=== PATIENT | female | born 1995 | race Caucasian/White ===

== ENCOUNTER 2018-04-28 23:03 | Inpatient (IN) | payer OTHER ==
[2018-04-28] MEDS ORDERED: VANCOMYCIN 1,000 MG in DEXTROSE 5%-WATER - 250 ML IVPB ONE (23:40)
[2018-04-28] MEDS ORDERED: AMPICILLIN NA/SULBACTAM NA 1.5 GM in SODIUM CHLORIDE 100 ML IVPB ONE (23:40)
--- NOTE | 2018-04-28 23:42 | PDOC ---
Attending Attestation - HPI HPI: 04/29/18 00:21 The patient is a 22 year old female with no significant PMH who presents to the emergency department with a cat bite since earlier today. The patient reports that she was home earlier today and she went outside to get her cat. The patient reports that she was then bitten by a stray cat on her left thumb at 5am. She also endorses some scratched on her left arm. She states that she washed out the cat bite immediately following the incident. She denies any other symptoms. She denies fever, chills, nausea, vomit, diarrhea and constipation or urinary symptoms. She denies chest pain, shortness of breath, headache and dizziness. The patient denies any other complaints. - Physicial Exam PE: 04/29/18 00:22 GENERAL: Awake, alert, and fully oriented, in no acute distress HEAD: No signs of trauma EYES: PERRLA, EOMI, sclera anicteric, conjunctiva clear ENT: Auricles normal inspection, hearing grossly normal, nares patent, oropharynx clear without exudates. Moist mucosa NECK: Normal ROM, supple, no lymphadenopathy, JVD, or masses LUNGS: Breath sounds equal, clear to auscultation bilaterally. No wheezes, and no crackles HEART: Regular rate and rhythm, normal S1 and S2, no murmurs, rubs or gallops ABDOMEN: Soft, nontender, normoactive bowel sounds. No guarding, no rebound. No masses EXTREMITIES: (+)left hand at first and 5th MCP joint has swelling, redness and warmth. Thumb and 1st finger are approximately 1 times larger than other fingers. Exquisite pain with movement. Normal range of motion, no edema. No clubbing or cyanosis. No cords. NEUROLOGICAL: Cranial nerves II through XII grossly intact. Normal speech, normal gait SKIN: Warm, Dry, normal turgor, no rashes or lesions noted. Documentation prepared by Jacqueline Tapia, acting as center medical specialist for Katerina Cid MD. <Jacqueline Tapia - Last Filed: 04/29/18 00:21> - Resident Resident Name: Kathy Mazariegos - ED Attending Attestation I have performed the following: I have examined & evaluated the patient, The case was reviewed & discussed with the resident, I agree w/resident's findings & plan - HPI HPI: 04/29/18 00:05 Pt comes with stray cat bites to her ambidexterous left hand. SHe was bitten at the 1st MCP joint, as well as the MCP koint of the 5th finger - both areas are swollen and cellulitic. She has other shallow bites of the hand and fingers. Unknown if the cat had rabies. 04/29/18 00:08 04/29/18 06:32 RIG and rabavert day zero dose given to the patient. - Physicial Exam PE: 04/29/18 00:10 Agree with resident exam - Medical Decision Making 04/29/18 01:11 WBC elevated; chem pending. C-RP pending 04/29/18 06:32 C-RP elevated. Pt will be admitted to observation for IV abx and reevaluation in 24hrs. <Katerina Cid - Last Filed: 04/29/18 06:33>
[2018-04-28] MEDS ORDERED: KETOROLAC TROMETHAMINE 30 MG/1 ML VIAL IVPUSH ONE (23:45)
[2018-04-28] MEDS ORDERED: RABIES IMMUNE GLOBULIN 300 UNITS/2 ML VIAL IM ONE (23:45)
--- NOTE | 2018-04-28 23:49 | PDOC ---
History of Present Illness - History of Present Illness Initial Comments: Leslie Jose is a 22yo woman with a PMH of PCOS who presents today with a cat bite that occurred this morning. She reports that her cat ran outside, and a stray cat attacked her when she tried to get her pet. She received a bite to the left thumb as well as numerous scratches on her left arm. She immediately washed the wounds, applied hydrogen peroxide, and coated the bite in an antibiotic ointment. However, throughout the day the wound became increasingly red, swollen, and painful. At this time, she has difficulty moving her thumb due to pain and swelling, and she feels throbbing in her hand whenever it is in a dependent position. She has not noticed any rapidly spreading redness or red streaks on her arm, drainage, or continued bleeding from the wounds. Leslie states that she had a tetanus shot last year. <Kathy Mazariegos - Last Filed: 04/28/18 23:44> <Katerina Cid - Last Filed: 04/29/18 00:54> - General Chief Complaint: Bite Stated Complaint: Bite Time Seen by Provider: 04/28/18 23:20 Past History - Past Medical History COPD: No - Immunization History Immunization Up to Date: Yes - Suicide/Smoking/Psychosocial Hx Smoking Status: No Smoking History: Never smoked Have you smoked in the past 12 months: No Number of Cigarettes Smoked Daily: 0 Hx Alcohol Use: No Drug/Substance Use Hx: No Substance Use Type: None <Kathy Mazariegos - Last Filed: 04/28/18 23:44> <Katerina Cid - Last Filed: 04/29/18 00:54> - Past Medical History Allergies/Adverse Reactions: Allergies Allergy/AdvReac Type Severity Reaction Status Date / Time No Known Allergies Allergy Verified 04/28/18 23:08 Home Medications: Ambulatory Orders No Home Medications 0 dose .ROUTE UTDICT 06/19/12 Amox-Tr/K Cl [Augmentin - 875Mg Tablet] 1 tab PO BID #20 tablet 04/29/18 Review of Systems - Review of Systems Comments:: General: No fevers, no chills, no weight or appetite change, no malaise HEENT: No changes in vision, no changes in hearing, no congestion, no sore throat CV: No chest pain, no palpitations, no LE edema Pulm: No SOB, no cough, no wheezing GI: No nausea or vomiting, no change in bowel habits, no melena : No frequency, no urgency, no dysuria Musc: No back pain, no joint swelling, no recent injury Skin: No rash, no lesions, no erythema Endo: No excessive thirst, no heat/cold intolerance Heme: No unusual bruising or bleeding, no swollen glands Neuro: No syncope, no numbness/tingling, no focal weakness Vasc: No claudication Psych: No recent change in mood, no SI or HI <Kathy Mazariegos - Last Filed: 04/28/18 23:44> *Physical Exam - Vital Signs Last Vital Signs Temp Pulse Resp BP Pulse Ox 98.3 F 98 H 20 156/80 99 04/28/18 23:06 04/28/18 23:06 04/28/18 23:06 04/28/18 23:06 04/28/18 23:06 - Physical Exam Comments: General: Comfortable, no acute distress HEENT: PERRL, EOMI, MMM, voice normal, normal neck ROM Pulm: Comfortable on room air Ext: BUE with multiple superficial scratches, more on left than right. LUE with erythema surrounding the scratches. Two puncture wounds consistent with a cat bite on the left thumb. Significant erythema and edema to the left thumb. No active drainage from the wounds. Thumb ROM limited by pain, swelling but appears intact. Sensation intact. Palpable radial pulses. Vasc: Extremities WWP. Neuro: A&Ox3, CN grossly intact, normal speech, motor/sensory grossly intact and symmetric Psych: Mood appropriate to situation <Kathy Mazariegos - Last Filed: 04/28/18 23:44> - Vital Signs Last Vital Signs Temp Pulse Resp BP Pulse Ox 98.3 F 98 H 20 156/80 99 04/28/18 23:06 04/28/18 23:06 04/28/18 23:06 04/28/18 23:06 04/28/18 23:06 <Katerina Cid - Last Filed: 04/29/18 00:54> ED Treatment Course - LABORATORY CBC & Chemistry Diagram: 04/29/18 00:20 04/29/18 00:20 - ADDITIONAL ORDERS Additional order review: 04/29/18 00:20 RBC 4.92 MCV 83.4 MCHC 33.7 RDW 13.6 MPV 9.1 Neutrophils % 61.3 Lymphocytes % 27.8 Monocytes % 8.5 Eosinophils % 1.8 Basophils % 0.6 <Katerina Cid - Last Filed: 04/29/18 00:54> Medical Decision Making - Medical Decision Making 04/28/18 23:57 Leslie Jose is a 22yo woman with no relevant medical history who presents with a bite from a stray cat as well as multiple scratches. - IV abx ordered to be given in the ED as bite occurred 18 hours ago - Tetanus current - Xrays of left hand to r/o retained foreign objects eg teeth - Toradol for pain - Will give rabies vaccine as cat is a stray and attack was unprovoked - Will discharge home on augmentin for 10 days Patient endorsed to Dr Aguero for remainder of care. Discussed with Dr Cid. <Kathy Mazariegos - Last Filed: 04/28/18 23:44> *DC/Admit/Observation/Transfer - Discharge Dispostion Decision to Admit order: No <Kathy Mazariegos - Last Filed: 04/28/18 23:44> <Katerina Cid - Last Filed: 04/29/18 00:54> Diagnosis at time of Disposition: Acute osteomyelitis of metacarpal bone of left hand Cat bite of finger Qualifiers: Encounter type: initial encounter Qualified Code(s): S61.259A - Open bite of unspecified finger without damage to nail, initial encounter - Discharge Dispostion Condition at time of disposition: Guarded - Prescriptions Prescriptions: Amox-Tr/K Cl [Augmentin - 875Mg Tablet] 1 tab PO BID #20 tablet - Referrals - Patient Instructions Printed Discharge Instructions: DI for Animal Bites Additional Instructions: Discharge Instructions: - You were seen in the ED for a cat bite - You recieved IV antibiotics in the ED. You have also been prescribed an antibiotic to take at home. Please continue to take this as prescribed until completed as cat bites can become easily infected - Use medications such as acetaminophen (Tylenol) or ibuprofen (Advil, Motrin) for pain - Consider ice packs for swelling or warm compresses for any drainage - Make an appointment to follow up with hand surgery (Dr Zimmerman) within the next week - You will need several more shots to complete the rabies vaccine series. Please follow up with your primary physician or come back to the ED for the remainder of your vaccines. - Seek immediate medical care if you have significant worsening of the swelling that prevents movement of your thumb, the thumb becomes extremely painful, numb to touch, and/or cold
[2018-04-29] MEDS ORDERED: VANCOMYCIN 1 GRAM (PRE-DOCKED) 1,000 MG/250 ML BAG IVPB ONE ×2 (00:09→03:19)
[2018-04-29] MEDS ORDERED: KETOROLAC TROMETHAMINE 30 MG/1 ML VIAL ONE (00:09)
[2018-04-29] MEDS ORDERED: RABIES VACCINE (PCEC)/PF 2.5 UNIT/VIAL IM ONE (00:29)
--- NOTE | 2018-04-29 00:38 | PDOC ---
*Physical Exam - Vital Signs Last Vital Signs Temp Pulse Resp BP Pulse Ox 98.3 F 98 H 20 156/80 99 04/28/18 23:06 04/28/18 23:06 04/28/18 23:06 04/28/18 23:06 04/28/18 23:06 - Physical Exam Comments: Initial Vital Signs Temp Pulse Resp BP Pulse Ox 98.3 F 98 H 20 156/80 99 04/28/18 23:06 04/28/18 23:06 04/28/18 23:06 04/28/18 23:06 04/28/18 23:06 04/29/18 00:38 Patient's care was endorsed to me by Dr. Mazariegos at the end of her shift. Patient will likely need admission as thumb has decreased ROM, needs hand consultation and continued IV abx. Ordered is rabies vaccine. Patient got rabies immune globulin and abx. Dr. Cid has ordered laboratory w/u and then we will page hospitalist for admission. <Yumi Cantu - Last Filed: 04/29/18 01:36> - Vital Signs Last Vital Signs Temp Pulse Resp BP Pulse Ox 98.3 F 98 H 20 156/80 99 04/28/18 23:06 04/28/18 23:06 04/28/18 23:06 04/28/18 23:06 04/28/18 23:06 <Katerina iCd - Last Filed: 04/29/18 03:25> ED Treatment Course - LABORATORY CBC & Chemistry Diagram: 04/29/18 00:20 04/29/18 00:20 <Yumi Cantu - Last Filed: 04/29/18 01:36> - LABORATORY CBC & Chemistry Diagram: 04/29/18 00:20 04/29/18 00:20 - ADDITIONAL ORDERS Additional order review: Laboratory Results 04/29/18 04/29/18 04/29/18 01:38 01:07 00:20 Sodium 140 Potassium 4.0 Chloride 104 Carbon Dioxide 27 Anion Gap 9 BUN 10 Creatinine 0.7 Creat Clearance w eGFR > 60 Random Glucose 99 Calcium 9.1 Total Bilirubin 1.0 AST 39 H ALT 67 Alkaline Phosphatase 125 H C-Reactive Protein 1.7 H Total Protein 8.0 Albumin 3.9 Serum , Qual Negative 04/29/18 00:20 RBC 4.92 MCV 83.4 MCHC 33.7 RDW 13.6 MPV 9.1 Neutrophils % 61.3 Lymphocytes % 27.8 Monocytes % 8.5 Eosinophils % 1.8 Basophils % 0.6 - Medications Given in the ED: ED Medications Discontinued Medications Generic Name Dose Route Start Last Admin Trade Name Bryan PRN Reason Stop Dose Admin Ampicillin Sodium/Sulbactam 100 mls @ 200 mls/hr 04/28/18 23:40 04/29/18 00: 45 Sodium 1.5 gm/ Sodium Chloride IVPB 04/29/18 00:09 200 mls/hr ONCE ONE Administration Vancomycin HCl 1,000 mg/ 250 mls @ 250 mls/hr 04/28/18 23:40 04/29/18 00:45 Dextrose IVPB 04/29/18 00:39 250 mls/hr ONCE ONE Administration Protocol Ketorolac Tromethamine 30 mg 04/28/18 23:45 04/29/18 00:15 Toradol Injection - IVPUSH 04/28/18 23:46 30 mg ONCE ONE Administration Rabies Immune Globulin 17.7 ml 04/28/18 23:45 04/29/18 01:00 Hyperrab S/D - 0.1333 ml/kg (17.7 ml) 04/28/18 23:46 17.7 ml IM Administration ONCE ONE Protocol Rabies Vaccine 2.5 unit 04/29/18 00:29 04/29/18 01:00 Rabavert Rabies Vaccine IM 04/29/18 00:30 2.5 unit .ONCE ONE Administration <Katerina Cid - Last Filed: 04/29/18 03:25> Medical Decision Making - Medical Decision Making Laboratory Tests 04/29/18 04/29/18 04/29/18 00:20 00:20 01:07 WBC 14.5 H RBC 4.92 Hgb 13.8 Hct 41.0 MCV 83.4 MCH 28.1 MCHC 33.7 RDW 13.6 Plt Count 298 MPV 9.1 Absolute Neuts (auto) 8.9 H Neutrophils % 61.3 Lymphocytes % 27.8 Monocytes % 8.5 Eosinophils % 1.8 Basophils % 0.6 Nucleated RBC % 0 Sodium 140 Potassium 4.0 Chloride 104 Carbon Dioxide 27 Anion Gap 9 BUN 10 Creatinine 0.7 Creat Clearance w eGFR > 60 Random Glucose 99 Calcium 9.1 Total Bilirubin 1.0 AST 39 H ALT 67 Alkaline Phosphatase 125 H C-Reactive Protein 1.7 H Total Protein 8.0 Albumin 3.9 04/29/18 01:36 Ordered is another 1,000 mg Vancomycin IVPB to bring dosing up to septic arthritis dosing (15-20 mg/kg). Still awaiting hand XR as radiology dept was called elsewhere in the hospital. <Yumi Cantu - Last Filed: 04/29/18 01:36> *DC/Admit/Observation/Transfer - Discharge Dispostion Decision to Admit order: Yes <Yumi Cantu - Last Filed: 04/29/18 01:36> <Katerina Cid - Last Filed: 04/29/18 03:25> Diagnosis at time of Disposition: Cellulitis of thumb, left, Metacarpophalangeal joint pain Cat bite of finger Qualifiers: Encounter type: initial encounter Qualified Code(s): S61.259A - Open bite of unspecified finger without damage to nail, initial encounter - Discharge Dispostion Condition at time of disposition: Guarded - Prescriptions Prescriptions: Amox-Tr/K Cl [Augmentin - 875Mg Tablet] 1 tab PO BID #20 tablet - Referrals - Patient Instructions Printed Discharge Instructions: DI for Animal Bites Additional Instructions: Discharge Instructions: - You were seen in the ED for a cat bite - You recieved IV antibiotics in the ED. You have also been prescribed an antibiotic to take at home. Please continue to take this as prescribed until completed as cat bites can become easily infected - Use medications such as acetaminophen (Tylenol) or ibuprofen (Advil, Motrin) for pain - Consider ice packs for swelling or warm compresses for any drainage - Make an appointment to follow up with hand surgery (Dr Zimmerman) within the next week - You will need several more shots to complete the rabies vaccine series. Please follow up with your primary physician or come back to the ED for the remainder of your vaccines. - Seek immediate medical care if you have significant worsening of the swelling that prevents movement of your thumb, the thumb becomes extremely painful, numb to touch, and/or cold - Post Discharge Activity
[2018-04-29 00:42] LABS: BASO % 0.6 % (0-2.0); EOS % 1.8 % (0-4.5); HEMOGLOBIN 13.8 GM/dL (10.7-15.3); LYMPH % 27.8 % (8-40); MCH 28.1 pg (25.7-33.7); MCHC 33.7 g/dl (32.0-36.0); MEAN CELL VOLUME 83.4 fl (80-96); MEAN PLT VOLUME 9.1 fl (7.5-11.1); MONO % 8.5 % (3.8-10.2); NEUT % 61.3 % (42.8-82.8); PLATELET COUNT 298 K/MM3 (134-434); RBC 4.92 M/mm3 (3.60-5.2); RDW 13.6 % (11.6-15.6); WHITE BLOOD COUNT 14.5 K/mm3 (4.0-10.0)
[2018-04-29] MEDS ORDERED: LIDOCAINE 2.5%/PRILOCAINE 2.5% (5 Gram/TUBE) TP ONE (00:49)
[2018-04-29 01:06] LABS: ALBUMIN 3.9 g/dl (3.4-5.0); ALK PHOS 125 U/L (45-117); ANION GAP 9 MMOL/L (8-16); BLOOD UREA NITROGEN 10 mg/dL (7-18); CALCIUM 9.1 mg/dL (8.5-10.1); CHLORIDE 104 mmol/L (98-107); CO2 27 mmol/L (21-32); CREATININE 0.7 mg/dL (0.55-1.02); GLUCOSE,RANDOM 99 mg/dL (74-106); SGPT/ALT 67 U/L (12-78); SODIUM 140 mmol/L (136-145)
[2018-04-29 01:07] LABS: SGOT/AST 39 U/L (15-37)
[2018-04-29] MEDS ORDERED: VANCOMYCIN 1,000 MG in DEXTROSE 5%-WATER - 250 ML IVPB ONE (01:35)
--- NOTE | 2018-04-29 03:40 | PDOC ---
*Physical Exam - Vital Signs Last Vital Signs Temp Pulse Resp BP Pulse Ox 98.3 F 98 H 20 156/80 99 04/28/18 23:06 04/28/18 23:06 04/28/18 23:06 04/28/18 23:06 04/28/18 23:06 ED Treatment Course - LABORATORY CBC & Chemistry Diagram: 04/29/18 00:20 04/29/18 00:20 - ADDITIONAL ORDERS Additional order review: Laboratory Results 04/29/18 04/29/18 04/29/18 01:38 01:07 00:20 Sodium 140 Potassium 4.0 Chloride 104 Carbon Dioxide 27 Anion Gap 9 BUN 10 Creatinine 0.7 Creat Clearance w eGFR > 60 Random Glucose 99 Calcium 9.1 Total Bilirubin 1.0 AST 39 H ALT 67 Alkaline Phosphatase 125 H C-Reactive Protein 1.7 H Total Protein 8.0 Albumin 3.9 Serum , Qual Negative 04/29/18 00:20 RBC 4.92 MCV 83.4 MCHC 33.7 RDW 13.6 MPV 9.1 Neutrophils % 61.3 Lymphocytes % 27.8 Monocytes % 8.5 Eosinophils % 1.8 Basophils % 0.6 - Medications Given in the ED: ED Medications Discontinued Medications Generic Name Dose Route Start Last Admin Trade Name Freq PRN Reason Stop Dose Admin Ampicillin Sodium/Sulbactam 100 mls @ 200 mls/hr 04/28/18 23:40 04/29/18 00: 45 Sodium 1.5 gm/ Sodium Chloride IVPB 04/29/18 00:09 200 mls/hr ONCE ONE Administration Vancomycin HCl 1,000 mg/ 250 mls @ 250 mls/hr 04/28/18 23:40 04/29/18 00:45 Dextrose IVPB 04/29/18 00:39 250 mls/hr ONCE ONE Administration Protocol Ketorolac Tromethamine 30 mg 04/28/18 23:45 04/29/18 00:15 Toradol Injection - IVPUSH 04/28/18 23:46 30 mg ONCE ONE Administration Rabies Immune Globulin 17.7 ml 04/28/18 23:45 04/29/18 01:00 Hyperrab S/D - 0.1333 ml/kg (17.7 ml) 04/28/18 23:46 17.7 ml IM Administration ONCE ONE Protocol Rabies Vaccine 2.5 unit 04/29/18 00:29 04/29/18 01:00 Rabavert Rabies Vaccine IM 04/29/18 00:30 2.5 unit .ONCE ONE Administration Medical Decision Making - Medical Decision Making 04/29/18 03:26 got sigout from day resident. patient had CAt bite and is developing a cellulites of her hand. Got ampicillin/salbactum and vanco. Xray reviewed: report pending. Less likely osteo. Patient has swelling and erythema on left thumb and little finger. Paged admitting [facility] hospitalist for admission. *DC/Admit/Observation/Transfer Diagnosis at time of Disposition: Cellulitis of thumb, left Cat bite of finger Qualifiers: Encounter type: initial encounter Qualified Code(s): S61.259A - Open bite of unspecified finger without damage to nail, initial encounter; W55.01XA - Bitten by cat, initial encounter Metacarpophalangeal joint pain Qualifiers: Laterality: left Qualified Code(s): M25.542 - Pain in joints of left hand - Discharge Dispostion Condition at time of disposition: Guarded Decision to Admit order: Yes - Prescriptions Prescriptions: Amox-Tr/K Cl [Augmentin - 875Mg Tablet] 1 tab PO BID #20 tablet - Referrals - Patient Instructions Printed Discharge Instructions: DI for Animal Bites Additional Instructions: Discharge Instructions: - You were seen in the ED for a cat bite - You recieved IV antibiotics in the ED. You have also been prescribed an antibiotic to take at home. Please continue to take this as prescribed until completed as cat bites can become easily infected - Use medications such as acetaminophen (Tylenol) or ibuprofen (Advil, Motrin) for pain - Consider ice packs for swelling or warm compresses for any drainage - Make an appointment to follow up with hand surgery (Dr Zimmerman) within the next week - You will need several more shots to complete the rabies vaccine series. Please follow up with your primary physician or come back to the ED for the remainder of your vaccines. - Seek immediate medical care if you have significant worsening of the swelling that prevents movement of your thumb, the thumb becomes extremely painful, numb to touch, and/or cold - Post Discharge Activity
--- NOTE | 2018-04-29 04:10 | PN ---
Teaching Attending Note Name of Resident: Alex Lovell ATTENDING PHYSICIAN STATEMENT I saw and evaluated the patient. I reviewed the resident's note and discussed the case with the resident. I agree with the resident's findings and plan as documented. SUBJECTIVE: Patient is a 22 year old woman with a PMH of PCOS who presents today with a cat bite that occurred this morning. She reports that her cat ran outside, and a stray cat attacked her when she tried to get her pet. She received a bite to the left thumb as well as numerous scratches on her left arm. She immediately washed the wounds, applied hydrogen peroxide, and coated the bite in an antibiotic ointment. However, throughout the day the wound became increasingly red, swollen, and painful. At this time, she has difficulty moving her thumb due to pain and swelling, and she feels throbbing in her hand whenever it is in a dependent position. She had a tetanus shot last year and got rabies immune globulin and vaccine in the ER as well as vancomycin and zosyn. OBJECTIVE: Alert Vital Signs Period Temp Pulse Resp BP Sys/Feng Pulse Ox Last 24 Hr 98.3 F 98 20 156/80 99 HEENT: No Jaundice, eye redness or discharge, PERRLA, EOMI. Normocephalic, atraumatic. External ears are normal and hearing is grossly intact. No nasal discharge. Neck: Supple, nontender. No palpable adenopathy or thyromegaly. No JVD Chest: Good effort. Clear to auscultation and percussion. Heart: Regular. No S3, rub or murmur Abdomen: Not distended, soft, nontender and no HSM. No rebound or guarding. Normoactive bowel sounds. Ext: Superficial scratches on arms with erythema surrounding the scratches on LUE. Two puncture wounds on the left thumb. Significant erythema and edema to the left thumb. No active drainage from the wounds. Thumb ROM limited. Peripheral pulses intact. No leg edema. Skin: Warm and dry. No petechiae, rash or ecchymosis. Neuro: Alert. Oriented x3. CN 2-12 grossly intact. Sensation grossly intact in all four extremities and DTR are symmetric. Home Medications Medication Instructions Recorded No Home Medications 0 dose .ROUTE UTDICT 06/19/12 Amox-Tr/K Cl [Augmentin - 875Mg 1 tab PO BID #20 tablet 04/29/18 Tablet] Abnormal Lab Results 04/29/18 04/29/18 04/29/18 00:20 00:20 01:07 WBC 14.5 H Absolute Neuts (auto) 8.9 H AST 39 H Alkaline Phosphatase 125 H C-Reactive Protein 1.7 H ASSESSMENT AND PLAN: 1. Cellulitis associated with cat bite - Continue vanco and unasyn. Provide local wound care. Consult ID and vascular surgery. May have undiagnosed hypertension. Recheck BP with right-sized cuff. Counseled about low salt, lifestyle changes and weight loss. May need to be started on antihypertensive drugs before discharge. 2. Obesity - Will provide patient all the necessary assistance , counseling and positive reinforcement to facilitate weight loss. Consult warehouse pricing and inventory clerk. 3. DVT prophylaxis - Lovenox 40 mg SQ q 12 hours. 4. Advance directives - Full code
[2018-04-29] MEDS ORDERED: HEPARIN NA (PORCINE) 5,000 UNITS/ML 1ML VIAL SQ SCH (06:00)
--- NOTE | 2018-04-29 06:23 | HP ---
CHIEF COMPLAINT: hand pain PCP: HISTORY OF PRESENT ILLNESS: Pt is a 22 y/o F with PMH pcos who presented with pain of the L hand who was bitten by a stray cat. Cat bit pt and ran away. Bite chase are still painful but improving. ER course was notable for: (1) abx (2) (3) Recent Travel: denies PAST MEDICAL HISTORY: denies PAST SURGICAL HISTORY: denies Social History: Smoking: denies Alcohol: denies Drugs: denies Family History: Allergies No Known Allergies Allergy (Verified 04/28/18 23:08) HOME MEDICATIONS: Home Medications Medication Instructions Recorded No Home Medications 0 dose .ROUTE UTDICT 06/19/12 Amox-Tr/K Cl [Augmentin - 875Mg 1 tab PO BID #20 tablet 04/29/18 Tablet] REVIEW OF SYSTEMS CONSTITUTIONAL: Absent: fever, chills, diaphoresis, generalized weakness, malaise, loss of appetite, weight change HEENT: Absent: rhinorrhea, nasal congestion, throat pain, throat swelling, difficulty swallowing, mouth swelling, ear pain, eye pain, visual changes CARDIOVASCULAR: Absent: chest pain, syncope, palpitations, irregular heart rate, lightheadedness , peripheral edema RESPIRATORY: Absent: cough, shortness of breath, dyspnea with exertion, orthopnea, wheezing, stridor, hemoptysis GASTROINTESTINAL: Absent: abdominal pain, abdominal distension, nausea, vomiting, diarrhea, constipation, melena, hematochezia GENITOURINARY: Absent: dysuria, frequency, urgency, hesitancy, hematuria, flank pain, genital pain MUSCULOSKELETAL: myalgia Absent: , arthralgia, joint swelling, back pain, neck pain SKIN: Absent: rash, itching, pallor HEMATOLOGIC/IMMUNOLOGIC: Absent: easy bleeding, easy bruising, lymphadenopathy, frequent infections ENDOCRINE: Absent: unexplained weight gain, unexplained weight loss, heat intolerance, cold intolerance NEUROLOGIC: Absent: headache, focal weakness or paresthesias, dizziness, unsteady gait, seizure, mental status changes, bladder or bowel incontinence PSYCHIATRIC: Absent: anxiety, depression, suicidal or homicidal ideation, hallucinations. PHYSICAL EXAMINATION Vital Signs - 24 hr 04/28/18 23:06 Temperature 98.3 F Pulse Rate 98 H Respiratory 20 Rate Blood Pressure 156/80 O2 Sat by Pulse 99 Oximetry (%) Gen: NAD HEENT: NCAT, moist membranes Neck: supple, no jvd Cardio: rrr, normal s1s2, no mrg Pulm cta abd: soft nontender nonistended Laboratory Results - last 24 hr 04/29/18 04/29/18 04/29/18 00:20 00:20 01:07 WBC 14.5 H RBC 4.92 Hgb 13.8 Hct 41.0 MCV 83.4 MCH 28.1 MCHC 33.7 RDW 13.6 Plt Count 298 MPV 9.1 Absolute Neuts (auto) 8.9 H Neutrophils % 61.3 Lymphocytes % 27.8 Monocytes % 8.5 Eosinophils % 1.8 Basophils % 0.6 Nucleated RBC % 0 Sodium 140 Potassium 4.0 Chloride 104 Carbon Dioxide 27 Anion Gap 9 BUN 10 Creatinine 0.7 Creat Clearance w eGFR > 60 Random Glucose 99 Calcium 9.1 Total Bilirubin 1.0 AST 39 H ALT 67 Alkaline Phosphatase 125 H C-Reactive Protein 1.7 H Total Protein 8.0 Albumin 3.9 Serum , Qual 04/29/18 01:38 WBC RBC Hgb Hct MCV MCH MCHC RDW Plt Count MPV Absolute Neuts (auto) Neutrophils % Lymphocytes % Monocytes % Eosinophils % Basophils % Nucleated RBC % Sodium Potassium Chloride Carbon Dioxide Anion Gap BUN Creatinine Creat Clearance w eGFR Random Glucose Calcium Total Bilirubin AST ALT Alkaline Phosphatase C-Reactive Protein Total Protein Albumin Serum , Qual Negative ASSESSMENT/PLAN: Pt is a 22 y/o F with PMH pcos who presented with pain of the L hand who was bitten by a stray cat. #Cat bite -on ABx in ED -Got Vanc, unasyn -NS -Improving #FEN -not on fluids -lytes wnl -reg diet #PPx -Hep #Dispo -tele obs Alex Lovell MD PGY-2 IM Visit type - Emergency Visit Emergency Visit: Yes ED Registration Date: 04/29/18 Care time: The patient presented to the Emergency Department on the above date and was hospitalized for further evaluation of their emergent condition. - New Patient This patient is new to me today: Yes Date on this admission: 05/01/18 - Critical Care Critical Care patient: No Hospitalist Screening - Colonoscopy Questionnaire Colonoscopy Questionnaire: Colonoscopy Questionnaire - Patient: 50 - 75 years old and never had a screening colonoscopy: Unknown History of colon or rectal polyps, or CA: Unknown History of IBD, Crohn's disease or UC: Unknown History of abdominal radiation therapy as a child: Unknown - Relative: 1 with colon or rectal CA, or polyps at age 60 or younger: Unknown Colon or rectal CA diagnosed at age 45 or younger: Unknown Multiple relatives with colon or rectal CA: Unknown - Outcome: Screening Result: Negative Screen
[2018-04-29] MEDS ORDERED: HEPARIN NA (PORCINE) 5,000 UNITS/ML 1ML VIAL ONE ×2 (06:57→08:49)
[2018-04-29] MEDS ORDERED: SODIUM CHLORIDE 1,000 ML IV SCH (08:30)
[2018-04-29] MEDS ORDERED: CLINDAMYCIN 600MG PREMIX IVPB 600 MG/50 ML BAG IVPB ONE (08:42)
[2018-04-29] MEDS ORDERED: CLINDAMYCIN 600MG PREMIX IVPB 600 MG/50 ML BAG IVPB SCH ×2 (09:00→10:00)
--- NOTE | 2018-04-29 09:56 | PN ---
Physical Exam: SUBJECTIVE: Patient seen and examined, left hand swelling, redness markedly improved, able to move hand better, no fevers/chills or new concerns. OBJECTIVE: Vital Signs Period Temp Pulse Resp BP Sys/Feng Pulse Ox Last 24 Hr 98.3 F-98.4 F 78-98 16-20 127-156/80-80 97-100 GENERAL:morbidly obese female, in bed in no acute distress Chest: CtAb, no rales or wheezing Abdomen:soft, obese, NT EXtremities: left had erythema left thump, swelling involving entire left hand more around thumb, improved per patient, able to almost close fist, limited by swelling more than by pain, positive pulses. HEENT: EOMI, PERRL Laboratory Results - last 24 hr 04/29/18 04/29/18 04/29/18 00:20 00:20 01:07 WBC 14.5 H RBC 4.92 Hgb 13.8 Hct 41.0 MCV 83.4 MCH 28.1 MCHC 33.7 RDW 13.6 Plt Count 298 MPV 9.1 Absolute Neuts (auto) 8.9 H Neutrophils % 61.3 Lymphocytes % 27.8 Monocytes % 8.5 Eosinophils % 1.8 Basophils % 0.6 Nucleated RBC % 0 Sodium 140 Potassium 4.0 Chloride 104 Carbon Dioxide 27 Anion Gap 9 BUN 10 Creatinine 0.7 Creat Clearance w eGFR > 60 Random Glucose 99 Hemoglobin A1c % Calcium 9.1 Total Bilirubin 1.0 AST 39 H ALT 67 Alkaline Phosphatase 125 H C-Reactive Protein 1.7 H Total Protein 8.0 Albumin 3.9 Serum , Qual 04/29/18 04/29/18 01:38 08:38 WBC RBC Hgb Hct MCV MCH MCHC RDW Plt Count MPV Absolute Neuts (auto) Neutrophils % Lymphocytes % Monocytes % Eosinophils % Basophils % Nucleated RBC % Sodium Potassium Chloride Carbon Dioxide Anion Gap BUN Creatinine Creat Clearance w eGFR Random Glucose Hemoglobin A1c % 5.5 Calcium Total Bilirubin AST ALT Alkaline Phosphatase C-Reactive Protein Total Protein Albumin Serum , Qual Negative Active Medications Generic Name Dose Route Start Last Admin Trade Name Freq PRN Reason Stop Dose Admin Chlorhexidine Gluconate 1 applic 04/29/18 22:00 Hibiclens For Decolonization - TP HS NU Heparin Sodium (Porcine) 5,000 unit 04/29/18 06:00 04/29/18 08:55 Heparin - SQ 5,000 unit TID NU Administration Ampicillin Sodium/Sulbactam 100 mls @ 200 mls/hr 04/29/18 09:00 Sodium 3 gm/ Sodium Chloride IVPB Q6H-IV NU Clindamycin Phosphate 600 mg in 50 mls @ 100 mls/hr 04/29/18 09:00 04/29/18 08:55 Cleocin 600 Mg Premix Ivpb - IVPB 100 mls/hr Q6H-IV NU Administration Protocol Sodium Chloride 1,000 mls @ 75 mls/hr 04/29/18 08:30 04/29/18 08:55 Normal Saline - IV 75 mls/hr ASDIR NU Administration Mupirocin 1 applic 04/29/18 10:00 Bactroban Ointment (For Decolonization) - NS 05/04/18 09:59 BID NU ASSESSMENT/PLAN: 22 yof with morbid obesity, PCOS, admitted with left hand cat bite cellulitis -Left hand cat bite cellulitis, unlikely abscess given rapid improvement and current exam -leucocytosis, suspect from above -PCOS -Morbid obesity Plan: Markedly improved, unlikely underlying abscess. s/p zosyn/vancomycin in ED. Start unasyn.clindamycin. Hand surgery consult with Dr. Zimmerman, case discussed. ID consult Dr. Benjamin, Gentle hydration, tylenol prn A1c 5.5 DVTPPX lovenox Dispo in 24-48 hours on PO abx if continues to improve. Plan discussed with patient in detail, all questions answered. discussed with RN. Visit type - Emergency Visit Emergency Visit: Yes ED Registration Date: 04/29/18 Care time: The patient presented to the Emergency Department on the above date and was hospitalized for further evaluation of their emergent condition. - New Patient This patient is new to me today: Yes Date on this admission: 04/29/18 - Critical Care Critical Care patient: No - Discharge Referral Referred to [facility] Med P.C.: No
[2018-04-29] MEDS ORDERED: MUPIROCIN 2% TOPICAL OINTMENT FOR DECOLONIZATION NS SCH (10:00)
[2018-04-29 10:03] LABS: BASO % 0.4 % (0-2.0); EOS % 2.4 % (0-4.5); HEMATOCRIT 39.9 % (32.4-45.2); HEMOGLOBIN 13.4 GM/dL (10.7-15.3); LYMPH % 25.2 % (8-40); MCH 28.1 pg (25.7-33.7); MCHC 33.6 g/dl (32.0-36.0); MEAN CELL VOLUME 83.7 fl (80-96); MEAN PLT VOLUME 9.4 fl (7.5-11.1); MONO % 9.3 % (3.8-10.2); NEUT % 62.7 % (42.8-82.8); PLATELET COUNT 263 K/MM3 (134-434); RBC 4.76 M/mm3 (3.60-5.2); RDW 13.3 % (11.6-15.6); WHITE BLOOD COUNT 10.7 K/mm3 (4.0-10.0)
[2018-04-29 10:21] LABS: ALK PHOS 125 U/L (45-117); ANION GAP 13 MMOL/L (8-16); BILIRUBIN,TOTAL 1.1 mg/dL (0.2-1.0); BLOOD UREA NITROGEN 11 mg/dL (7-18); CALCIUM 9.2 mg/dL (8.5-10.1); CHLORIDE 105 mmol/L (98-107); CO2 22 mmol/L (21-32); CREATININE 0.7 mg/dL (0.55-1.02); GLUCOSE,RANDOM 104 mg/dL (74-106); SGPT/ALT 67 U/L (12-78); SODIUM 140 mmol/L (136-145)
[2018-04-29 10:22] LABS: POTASSIUM 4.1 mmol/L (3.5-5.1)
[2018-04-29 10:23] LABS: SGOT/AST 48 U/L (15-37)
[2018-04-29] MEDS: AMPICILLIN NA/SULBACTAM NA 3 GM in SODIUM CHLORIDE 100 ML IVPB SCH ×3 (12:03→20:18)
[2018-04-29] MEDS: ENOXAPARIN NA (PORCINE) 40 MG/0.4 ML DISP.SYRIN SQ SCH (12:16)
[2018-04-29 12:25] VITALS: BMI 46.3
--- NOTE | 2018-04-29 13:44 | PN ---
Progress Note (short form) - Note Progress Note: ID Consult dictated S/P cat bite L hand Cellulitis R/O tenosynovitis Obtain BC Empiric unasyn/ vancomycin Hand surgery evaluation RIG/ Rabies vaccine administered
--- NOTE | 2018-04-29 14:17 | CONS ---
DATE OF CONSULTATION: 04/29/2018 The patient is a 22-year-old healthy female who is evaluated for cellulitis of the left hand, status post cat bite. The patient reports that she had sustained a cat bite wound to her left hand on April 28, 2018. She reports that her cat and another cat were having an altercation at about 5:00 a.m. The stray cat bit her left hand resulting in wounds to the left 1st and 5th MCP joints. She presented to the emergency room where she was evaluated. She was given rabies immunoglobulin and rabies vaccine. An x-ray was performed and was negative. She denies any purulent wound drainage. No associated fevers or chills. PAST MEDICAL HISTORY: Negative. The patient is nondiabetic. ALLERGIES: No known allergies. LABORATORY DATA: White count on admission 14, presently 10.7, and creatinine 0.7. Cultures are pending. PHYSICAL EXAMINATION: General: She is awake and alert. She is not acutely toxic appearing. Vital Signs: Temperature 98.2, blood pressure 133/74, pulse 78 and regular, and respirations 20 per minute. HEENT: Anicteric. Heart: Heart sounds S1, S2. Lungs: Clear. Abdomen: Soft, obese. Extremities: Negative for edema. Examination of the left hand: There is erythema and swelling with puncture wounds present of the left 5th MCP joint. In addition, there is erythema and swelling of the left 1st MCP joint with puncture wounds present. There is no expressible pus. There is decreased range of motion. The patient is able to clench her fist. No lymphangitic streaking. IMPRESSION: 1. Status post cat bite, left hand. 2. Cellulitis, rule out tenosynovitis. 3. Leukocytosis, possible sepsis. PLAN: Obtain blood cultures, empiric antibiotic coverage with vancomycin and Unasyn, surgical evaluation, and rabies vaccine as per [facility] protocol. Thank you for the kind referral. MARGOT ALLEN M.D. CHANELLE/[id number]
[2018-04-29] MEDS ORDERED: PT OWN MED DRAWER 7, Y5N ONE ×2 (15:10→20:17)
[2018-04-29] MEDS: VANCOMYCIN 1 GM PREMIX - 1 GM/200 ML BAG IVPB SCH (16:18)
--- NOTE | 2018-04-29 18:10 | CONSULT ---
Consult Consult Specialty:: Hand and Microsurgery Referred by:: Karly Staley MD Reason for Consultation:: Left hand Cat bite - History of Present Illness Chief Complaint: Left hand cat bite History of Present Illness: 22 yo RHD female PMH obesity, PCOS who presents today with a cat bite that occurred this morning. She reports that her cat ran outside, and a stray cat attacked her when she tried to get her pet. She received a bite to the left thumb as well as numerous scratches on her left upper extremity. She immediately washed the wounds, applied hydrogen peroxide, and coated the bite in an antibiotic ointment. However, throughout the day the wound became increasingly red, swollen, and painful. At this time, she has difficulty moving her thumb due to pain and swelling, and she feels throbbing in her hand whenever it is in a dependent position. She had a tetanus shot last year and got rabies immune globulin and vaccine in the ER as well as vancomycin and zosyn. We were asked to assess. - History Source History Provided By: Patient, Medical Record Limitations to Obtaining History: No Limitations - Past Medical History Reproductive: Yes: Polycystic Ovary Syndrome ...LMP: 04/11/18 ...: No Additional Medical History: morbid obesity - Alcohol/Substance Use Hx Alcohol Use: No - Smoking History Smoking history: Never smoked Have you smoked in the past 12 months: No Aproximately how many cigarettes per day: 0 - Social History Place of : [facility] History of Recent Travel: No Home Medications - Allergies Allergies/Adverse Reactions: Allergies Allergy/AdvReac Type Severity Reaction Status Date / Time No Known Allergies Allergy Verified 04/28/18 23:08 - Home Medications Home Medications: Ambulatory Orders No Home Medications 0 dose .ROUTE UTDICT 06/19/12 Amox-Tr/K Cl [Augmentin - 875Mg Tablet] 1 tab PO BID #20 tablet 04/29/18 Review of Systems - Review of Systems Constitutional: denies: Chills, Fever Eyes: denies: Blind Spots, Recent Change in Vision HENT: denies: Difficult Swallowing, Throat Pain Neck: denies: Pain on Movement, Swollen Glands, Tenderness Cardiovascular: denies: Chest Pain, Palpitations Respiratory: denies: Cough, SOB Gastrointestinal: denies: Abdominal Pain, Constipation, Diarrhea Genitourinary: denies: Discharge, Dysuria Breasts: reports: No Symptoms Reported. denies: Pain Musculoskeletal: reports: Extremity Pain. denies: Decreased ROM, Muscle Pain Integumentary: reports: Wound (left hand). denies: Lesions, Rash Neurological: denies: Change in LOC, Seizure, Syncope Endocrine: denies: Unexplained Weight Gain, Unexplained Weight Loss Hematology/Lymphatic: denies: Easily Bruised, Excessive Bleeding Psychiatric: denies: Anxiety, Depression Physical Exam Vital Signs: Vital Signs Temperature 98.3 F 04/29/18 17:06 Pulse Rate 76 04/29/18 17:06 Respiratory Rate 20 04/29/18 17:06 Blood Pressure 130/69 04/29/18 17:06 O2 Sat by Pulse Oximetry (%) 100 04/29/18 09:05 Constitutional: Yes: Well Nourished, No Distress, Calm, Obese Eyes: Yes: Conjunctiva Clear, EOM Intact HENT: Yes: Atraumatic, Normocephalic Neck: Yes: Supple, Trachea Midline Cardiovascular: Yes: Regular Rate and Rhythm Respiratory: Yes: Regular, CTA Bilaterally Gastrointestinal: Yes: Normal Bowel Sounds, Soft, Abdomen, Obese. No: Tenderness ...Rectal Exam: Yes: Deferred Renal/: No: CVA Tenderness - Left, CVA Tenderness - Right Extremities: No: Cool, Cyanosis Edema: No Edema: LUE: Trace Peripheral Pulses WNL: Yes Integumentary: No: Erythema, Jaundice Wound/Incision: Yes: Clean/Dry, Open to air, Reddened (puncture head of 5th MC and ulnar thumb. Full ROM with minimal swelling, 0 KANAVEL sign s, 2PD is preserved wnl) Neurological: Yes: Alert, Oriented ...Motor Strength: WNL Psychiatric: Yes: Alert, Oriented Labs: CBC, BMP 04/29/18 08:38 04/29/18 08:38 Imaging - Results X-ray: Report Reviewed, Image Reviewed (no fracture dislocation or Foreign body) Problem List - Problems (1) Cellulitis of thumb, left Assessment/Plan: 22yo RHD female PMH obesity, PCOS, with acute presentation after left thumb/ hand cat bite, cellulitis without KANAVEL signs, No acute surgical intervention is indicated. IV antibiotoics ID consult appropriate PO regimen Elevation of Left arm PT evaluation for ROM at home D/C planning Thank you for the opportunity to participate in the care of this patient. Code(s): L03.012 - CELLULITIS OF LEFT FINGER (2) Cat bite of finger Code(s): S61.259A - OPEN BITE OF UNSP FINGER WITHOUT DAMAGE TO NAIL, INIT ENCNTR ; W55.01XA - BITTEN BY CAT, INITIAL ENCOUNTER Qualifiers: Encounter type: initial encounter Qualified Code(s): S61.259A - Open bite of unspecified finger without damage to nail, initial encounter; W55.01XA - Bitten by cat, initial encounter (3) Obesity Code(s): E66.9 - OBESITY, UNSPECIFIED Qualifiers: Obesity type: due to excess calories Serious obesity comorbidity presence: with serious comorbidity Body mass index: BMI 45.0-49.9 (4) PCOS (polycystic ovarian syndrome) Code(s): E28.2 - POLYCYSTIC OVARIAN SYNDROME
[2018-04-29] MEDS ORDERED: CHLORHEXIDINE GLUCONATE 4% CLEANSER FOR DECOLONIZATION TP SCH (22:00)
[2018-04-30] MEDS: VANCOMYCIN 1 GM PREMIX - 1 GM/200 ML BAG IVPB SCH (02:02)
[2018-04-30] MEDS: AMPICILLIN NA/SULBACTAM NA 3 GM in SODIUM CHLORIDE 100 ML IVPB SCH ×2 (03:18→09:12)
[2018-04-30 08:24] LABS: BASO % 0.5 % (0-2.0); EOS % 3.2 % (0-4.5); HEMATOCRIT 38.4 % (32.4-45.2); HEMOGLOBIN 12.6 GM/dL (10.7-15.3); LYMPH % 33.3 % (8-40); MCH 27.5 pg (25.7-33.7); MCHC 32.8 g/dl (32.0-36.0); MEAN CELL VOLUME 83.8 fl (80-96); MEAN PLT VOLUME 9.2 fl (7.5-11.1); MONO % 10.4 % (3.8-10.2); NEUT % 52.6 % (42.8-82.8); PLATELET COUNT 232 K/MM3 (134-434); RBC 4.58 M/mm3 (3.60-5.2); RDW 13.4 % (11.6-15.6); WHITE BLOOD COUNT 7.2 K/mm3 (4.0-10.0)
[2018-04-30] MEDS ORDERED: PT OWN MED DRAWER 7, Y5N ONE (09:07)
[2018-04-30] MEDS: ENOXAPARIN NA (PORCINE) 40 MG/0.4 ML DISP.SYRIN SQ SCH (09:18)
--- NOTE | 2018-04-30 10:09 | PN ---
Teaching Attending Note Name of Resident: Lisa Dia ATTENDING PHYSICIAN STATEMENT I saw and evaluated the patient. I reviewed the resident's note and discussed the case with the resident. I agree with the resident's findings and plan as documented with exceptions below. SUBJECTIVE: Patient seen and examined. Left hand symptoms markedly improved, eager to go home. No fevers/chills or new concerns. OBJECTIVE: Vital Signs Period Temp Pulse Resp BP Sys/Feng Pulse Ox Last 24 Hr 98 F-98.3 F 74-84 17-20 115-133/60-74 100 Intake & Output 04/27/18 04/28/18 04/29/18 04/30/18 23:59 23:59 23:59 23:59 Intake Total 550 5300 Balance 550 5300 Weight 293 lb 287 lb General: sitting in bed in no acute distress Extremities: left hand resolved erythema, minimal swelling, full ROM left hand, positive pulses Home Medications Medication Instructions Recorded No Home Medications 0 dose .ROUTE UTDICT 06/19/12 Amox-Tr/K Cl [Augmentin - 875Mg 1 tab PO BID #20 tablet 04/29/18 Tablet] Active Medications Enoxaparin Sodium (Lovenox -) 40 mg SQ DAILY NU Last Admin: 04/30/18 09:18 Dose: Not Given Ampicillin Sodium/Sulbactam (Sodium 3 gm/ Sodium Chloride) 100 mls @ 200 mls/ hr IVPB Q6H-IV NU Last Admin: 04/30/18 09:12 Dose: 200 mls/hr Sodium Chloride (Normal Saline -) 1,000 mls @ 75 mls/hr IV ASDIR NU Last Admin: 04/29/18 08:55 Dose: 75 mls/hr Vancomycin HCl (Vancomycin 1 Gm Premix -) 1 gm in 200 mls @ 166.667 mls/hr IVPB BID@0300,1500 NU; Protocol Last Admin: 04/30/18 02:02 Dose: 166.667 mls/hr Laboratory Results - last 24 hr 04/29/1818 04/30/18 08:38 08:38 06:00 WBC 10.7 H 7.2 RBC 4.76 4.58 Hgb 13.4 12.6 Hct 39.9 38.4 MCV 83.7 83.8 MCH 28.1 27.5 MCHC 33.6 32.8 RDW 13.3 13.4 Plt Count 263 232 MPV 9.4 9.2 Absolute Neuts (auto) 6.7 3.8 Neutrophils % 62.7 52.6 Lymphocytes % 25.2 33.3 D Monocytes % 9.3 10.4 H Eosinophils % 2.4 3.2 Basophils % 0.4 0.5 Nucleated RBC % 0 0 Sodium 140 Potassium 4.1 Chloride 105 Carbon Dioxide 22 Anion Gap 13 BUN 11 Creatinine 0.7 Creat Clearance w eGFR > 60 Random Glucose 104 Calcium 9.2 Total Bilirubin 1.1 H AST 48 H ALT 67 Alkaline Phosphatase 125 H Total Protein 8.0 Albumin 4.0 ASSESSMENT AND PLAN: 22 yof with morbid obesity, PCOS, admitted with left hand cat bite cellulitis -Left hand cat bite cellulitis, unlikely abscess given rapid improvement and current exam -leucocytosis, suspect from above, resolved -PCOS -Morbid obesity Plan: Markedly improved. ID/Hand surgeyr input noted. Unasyn/vancomycin day 2. Blood cx pending but no clinical concerns. Discussed with Dr. macedo, follow up for po abx taper. PT eval for left hand exercises. d/c IVF. tylenol prn A1c 5.5 DVTPPX lovenox Dispo d/c today on PO antibiotics pending ID input. Plan discussed with patient in detail, all questions answered. discussed with RN.
--- NOTE | 2018-04-30 10:35 | PN ---
Progress Note (short form) - Note Progress Note: no complaints Vital Signs Period Temp Pulse Resp BP Sys/Feng Pulse Ox Last 24 Hr 98 F-98.3 F 74-84 17-20 115-133/60-74 100 cor-rrr lungs clear she has FROM of her hand with minimal erythema at the thumb CBC, BMP 04/30/18 06:00 04/29/18 08:38 hand xray no fracture, no foreign body a/p s/p cat bite- improving no objection to switch to po augmenting 875 bid for 10 days should f/u with her PMD rabies vaccine f/u per [facility] protocol
[2018-04-30 12:29] VITALS: BP 119/77; PULSE 79; TEMP 98.2
--- NOTE | 2018-04-30 19:27 | DS ---
Physical Exam: SUBJECTIVE: Patient seen and examined at bedside this morning. Patient has no active complaints. OBJECTIVE: Vital Signs Period Temp Pulse Resp BP Sys/Feng Pulse Ox Last 24 Hr 98 F-98.2 F 74-84 17-18 115-131/60-77 100-100 PHYSICAL EXAM GENERAL: The patient is awake, alert, and fully oriented, in no acute distress. HEAD: Normal with no signs of trauma. EYES: PERRLA, EOMI, sclera anicteric, conjunctiva clear. ENT: Ears normal, nares patent, oropharynx clear without exudates, moist mucous membranes. NECK: Trachea midline, full range of motion, supple. LUNGS: Breath sounds equal, clear to auscultation bilaterally. HEART: Regular rate and rhythm, S1, S2 without murmur, rub or gallop. ABDOMEN: Soft, nontender, nondistended, normoactive bowel sounds. EXTREMITIES: 2+ pulses, warm, well-perfused, no edema. NEUROLOGICAL: Cranial nerves II through XII grossly intact. Normal speech, normal gait. PSYCH: Normal mood, normal affect. SKIN: Warm, dry, normal turgor, no rashes or lesions noted. LABS Laboratory Results - last 24 hr 04/30/18 06:00 WBC 7.2 RBC 4.58 Hgb 12.6 Hct 38.4 MCV 83.8 MCH 27.5 MCHC 32.8 RDW 13.4 Plt Count 232 MPV 9.2 Absolute Neuts (auto) 3.8 Neutrophils % 52.6 Lymphocytes % 33.3 D Monocytes % 10.4 H Eosinophils % 3.2 Basophils % 0.5 Nucleated RBC % 0 Imaging: Left hand xray- No acute left hand pathology. No sign of a foreign body. HOSPITAL COURSE: Date of Admission:04/29/18 Date of Discharge: 04/30/18 Patient is a 22 year old woman with a PMH of PCOS who presents today with a cat bite that occurred this morning. She reports that her cat ran outside, and a stray cat attacked her when she tried to get her pet. She received a bite to the left thumb as well as numerous scratches on her left arm. She immediately washed the wounds, applied hydrogen peroxide, and coated the bite in an antibiotic ointment. However, throughout the day the wound became increasingly red, swollen, and painful. At this time, she has difficulty moving her thumb due to pain and swelling, and she feels throbbing in her hand whenever it is in a dependent position. She had a tetanus shot last year and got rabies immune globulin and vaccine in the ER as well as vancomycin and zosyn. Patient was admitted because for left hand cat bite cellulitis with leukocytosis. ID and Hand surgery consulted. Patient was started on Unasyn and Vancomycin. IVF given and Tylenol as need for pain. Left hand xray showed no acute pathology. Blood cx preliminary report showed no growth. PT evaluation ordered for left hand exercises. Patient remained stable with improvement of cellulitis for the rest of the hospital stay. She was discharged with instructions to follow-up for 3 more doses of rabies vaccine as per [facility] protocol , and to continue antibiotic Augmentin for 7 more days. Minutes to complete discharge: 45 Discharge Summary Reason For Visit: CAT BITE OF FINGER;METACARPOPHALANGEAL;CELLULITIS Condition: Good - Instructions Diet, Activity, Other Instructions: Discharge Instructions: - You were seen in the ED for a cat bite - You recieved IV antibiotics in the ED. You have also been prescribed an antibiotic to take at home. Please continue to take this as prescribed until completed as cat bites can become easily infected Take augmentin 1 tablet twice daily for 1 week. (your prescription has been sent ) - Use medications such as acetaminophen (Tylenol) or ibuprofen (Advil, Motrin) for pain - Consider ice packs for swelling or warm compresses for any drainage - Make an appointment to follow up with hand surgery (Dr Zimmerman) within the next week - You will need several more shots to complete the rabies vaccine series. Please follow up with your primary physician or come back to the ED for the remainder of your vaccines. You will need 3 additional rabies shots on following dates: 05/02/19, 05/06/2018 and 05/13/2018. [facility] Emergency department is able to give you the following shots, so please ensure to come back these dates. Or you can follow up with your primary care physical and seen if can provide your with these shots on the dates mentioned -Continue with hand exercises as recommended by physical therapist. - Seek immediate medical care if you have significant worsening of the swelling that prevents movement of your thumb, the thumb becomes extremely painful, numb to touch, and/or cold Referrals: Reginald Zimmerman MD [Staff Physician] - 1 Week Disposition: HOME - Home Medications Comprehensive Discharge Medication List: Ambulatory Orders Amoxicillin/Potassium Clav [Augmentin 875-125 Tablet] 1 each PO BID #14 tablet 04/30/18 This patient is new to me today: Yes Date on this admission: 04/30/18 Emergency Visit: Yes ED Registration Date: 04/29/18 Care time: The patient presented to the Emergency Department on the above date and was hospitalized for further evaluation of their emergent condition. Critical Care patient: No - Discharge Referral Referred to [facility] Med P.C.: No
== END 2018-04-30 12:26 | disposition home or self-care (01) | DRG 383 ==
LOC: JER 23:03 → JERBED 04-29 04:09 → OBSVTOIN 04-29 05:12 → J8W 04-29 09:30
PROVIDERS: ADMIT Internal Medicine; ATTEND Hospitalist
DX: L03.012 Cellulitis of left finger (principal); S61.259A Open bite of unspecified finger without damage to nail, initial encounter; W55.01XA Bitten by cat, initial encounter; Y93.9 Activity, unspecified; Y92.89 Other specified places as the place of occurrence of the external cause; Y99.9 Unspecified external cause status; D72.829 Elevated white blood cell count, unspecified; E66.01 Morbid (severe) obesity due to excess calories; Z68.42 Body mass index [BMI] 45.0-49.9, adult; E28.2 Polycystic ovarian syndrome
CPT/HCPCS: 36415; 73130-TC-LR-FY; 80053; 83036; 84703; 85025; 86140; 87040; 90375; 90675; 97161-GP; 99284-25; G0378; J1644; J7030

== ENCOUNTER 2018-05-02 10:57 | Emergency (ER) | payer OTHER ==
[2018-05-02 11:19] VITALS: BP 123/74; PULSE 78; TEMP 98; BMI 46.3
[2018-05-02] MEDS ORDERED: RABIES VACCINE (PCEC)/PF 2.5 UNIT/VIAL IM ONE (11:41)
--- NOTE | 2018-05-02 11:48 | PDOC ---
History of Present Illness - General Chief Complaint: Revisit,Rabies Injection Stated Complaint: REVISIT, RABIES INJECTION Time Seen by Provider: 05/02/18 11:34 History Source: Patient Exam Limitations: Clinical Condition - History of Present Illness Initial Comments: 05/02/18 11:43 Patient with no sig Past medical history present for second dose of rabies vaccination status post presenting 3 days ago with cat bite to left thumb. Patient status post IV antibiotics for 24 hours after cat bite due to restricted to movement and swelling. Patient reports swelling has decreased and able to freely move left thumb. Denies fever or chills, nausea vomiting Timing/Duration: other (3 days) Past History - Past Medical History Allergies/Adverse Reactions: Allergies Allergy/AdvReac Type Severity Reaction Status Date / Time No Known Allergies Allergy Verified 05/02/18 11:19 Home Medications: Ambulatory Orders Amoxicillin/Potassium Clav [Augmentin 875-125 Tablet] 1 each PO BID #14 tablet 04/30/18 COPD: No DVT: No - Immunization History Immunization Up to Date: Yes - Suicide/Smoking/Psychosocial Hx Smoking Status: No Smoking History: Never smoked Have you smoked in the past 12 months: No Number of Cigarettes Smoked Daily: 0 Hx Alcohol Use: No Drug/Substance Use Hx: No Substance Use Type: None Hx Substance Use Treatment: No Review of Systems - Review of Systems Able to Perform ROS?: Yes Is the patient limited Persian proficient: No Constitutional: No: Chills, Diaphoresis, Fever, Loss of Appetite, Malaise, Night Sweats, Weakness, Weight Stable, Unintentional Wgt. Loss, Unexplained wgt Loss, Other HEENTM: No: Eye Pain, Blurred Vision, Tearing, Recent change in vision, Double Vision, Cataracts, Ear Pain, Ocular Prothesis, Ear Discharge, Nose Pain, Nose Congestion, Tinnitus, Nose Bleeding, Hearing Loss, Throat Pain, Throat Swelling , Mouth Pain, Dental Problems, Difficulty Swallowing, Mouth Swelling, Other Respiratory: No: Cough, Orthopnea, Shortness of Breath, SOB with Exertion, SOB at Rest, Stridor, Wheezing, Productive cough, Hemoptysis, Other Cardiac (ROS): No: Chest Pain, Edema, Irregular Heart Rate, Lightheadedness, Palpitations, Syncope, Chest Tightness, Other ABD/GI: No: Abdominal Distended, Abd. Pain w/ defecation, Blood Streaked Bowels , Constipated, Diarrhea, Difficulty Swallowing, Nausea, Poor Appetite, Poor Fluid Intake, Rectal Bleeding, Vomiting, Indigestion, Abdominal cramping, Tarry Stools, Other Musculoskeletal: Yes: Joint Swelling (left thumb) All Other Systems: Reviewed and Negative *Physical Exam - Vital Signs Last Vital Signs Temp Pulse Resp BP Pulse Ox 98 F 78 18 123/74 99 05/02/18 11:16 05/02/18 11:16 05/02/18 11:16 05/02/18 11:16 05/02/18 11:16 - Physical Exam Comments: 05/02/18 11:46 GENERAL: Well developed, well nourished. Awake and alert. No acute distress. HEENT: Normocephalic, atraumatic. PERRLA, EOMI. No conjunctival pallor. Sclera are non- icteric. Moist mucous membranes. Oropharynx is clear. NECK: Supple. Full ROM. No JVD. Carotid pulses 2+ and symmetric, without bruits. No thyromegaly. No lymphadenopathy. CARDIOVASCULAR: Regular rate and rhythm. No murmurs, rubs, or gallops. Distal pulses are 2+ and symmetric. PULMONARY: No evidence of respiratory distress. Lungs clear to auscultation bilaterally. No wheezing, rales or rhonchi. ABDOMINAL: Soft. Non-tender. Non-distended. No rebound or guarding. No organomegaly. Normoactive bowel sounds. MUSCULOSKELETAL Normal range of motion at all joints. No bony deformities or tenderness. No CVA tenderness. EXTREMITIES: No cyanosis. No clubbing. No edema. No calf tenderness. SKIN: Mild swelling to left thumb. Warm and dry. Normal capillary refill. No rashes. No jaundice. NEUROLOGICAL: Alert, awake, appropriate. Cranial nerves 2-12 intact. No deficits to light touch and temperature in face, upper extremities and lower extremities. No motor deficits in the in face, upper extremities and lower extremities. Normoreflexic in the upper and lower extremities. Normal speech. Toes are down- going bilaterally. Gait is normal without ataxia. PSYCHIATRIC: Cooperative. Good eye contact. Appropriate mood and affect. General Appearance: Yes: Nourished, Appropriately Dressed. No: Apparent Distress Medical Decision Making - Medical Decision Making 05/02/18 11:47 Patient with no sig Past medical history presenting for rabies vaccine status post presenting 3 days ago with cat bite to left thumb with swelling to thumb. Exam shows mild swelling to left thumb which she reported much improvement from last visit 3 days ago. Rabies vaccine ordered and patient advised to follow-up in 4 days for third dose *DC/Admit/Observation/Transfer Diagnosis at time of Disposition: Encounter for repeat administration of rabies vaccination Cat bite of finger Qualifiers: Encounter type: subsequent encounter Qualified Code(s): S61.259D - Open bite of unspecified finger without damage to nail, subsequent encounter; W55.01XD - Bitten by cat, subsequent encounter - Discharge Dispostion Disposition: HOME Condition at time of disposition: Stable Decision to Admit order: No - Referrals Referrals: ON STAFF,NOT [Primary Care Provider] - - Patient Instructions Printed Discharge Instructions: DI for Rabies Vaccine Additional Instructions: Follow-up in 4 days for third dose of vaccination - Post Discharge Activity
== END 2018-05-02 12:30 | disposition home or self-care (01) ==
LOC: JERFT 10:57
PROC: 3E0234Z Introduction of Serum, Toxoid and Vaccine into Muscle, Percutaneous Approach (ICD-10-PCS; principal; 2018-05-02)
DX: Z20.3 Contact with and (suspected) exposure to rabies (principal); S61.052D Open bite of left thumb without damage to nail, subsequent encounter; W55.01XD Bitten by cat, subsequent encounter
CPT/HCPCS: 90675; 99281-25

== ENCOUNTER 2018-05-13 10:58 | Emergency (ER) | payer OTHER ==
[2018-05-13 11:10] VITALS: BP 127/66; PULSE 68; TEMP 98.8; BMI 46.3
[2018-05-13] MEDS ORDERED: RABIES VACCINE (PCEC)/PF 2.5 UNIT/VIAL IM ONE (11:27)
--- NOTE | 2018-05-13 11:34 | PDOC ---
History of Present Illness - General Chief Complaint: Revisit,Rabies Injection Stated Complaint: REVISIT, RABIES INJECTION Time Seen by Provider: 05/13/18 11:15 History Source: Patient - History of Present Illness Initial Comments: 05/13/18 11:29 Patient with no sig Past medical history present for last dose of rabies vaccine status post cat bite to left thumb week ago. Report no issues with a thumb. Report normal fashion of left thumb. Denies any swelling or drainage from thumb. Denies any other symptoms Timing/Duration: 1 week Past History - Past Medical History Allergies/Adverse Reactions: Allergies Allergy/AdvReac Type Severity Reaction Status Date / Time No Known Allergies Allergy Verified 05/13/18 11:09 Home Medications: Ambulatory Orders NK [No Known Home Medication] 05/06/18 COPD: No DVT: No - Immunization History Immunization Up to Date: Yes - Suicide/Smoking/Psychosocial Hx Smoking Status: No Smoking History: Never smoked Have you smoked in the past 12 months: No Number of Cigarettes Smoked Daily: 0 Hx Alcohol Use: No Drug/Substance Use Hx: No Substance Use Type: None Hx Substance Use Treatment: No Review of Systems - Review of Systems Able to Perform ROS?: Yes Is the patient limited Croatian proficient: No Constitutional: No: Chills, Fever HEENTM: Yes: Eye Pain. No: Symptoms Reported Respiratory: No: Cough, Orthopnea, Shortness of Breath, SOB with Exertion, SOB at Rest, Stridor, Wheezing, Productive cough, Hemoptysis, Other Cardiac (ROS): No: Chest Pain, Edema, Irregular Heart Rate, Lightheadedness, Palpitations, Syncope, Chest Tightness, Other ABD/GI: No: Abdominal Distended, Abd. Pain w/ defecation, Blood Streaked Bowels , Constipated, Diarrhea, Difficulty Swallowing, Nausea, Poor Appetite, Poor Fluid Intake, Rectal Bleeding, Vomiting, Indigestion, Abdominal cramping, Tarry Stools, Other Musculoskeletal: Yes: See HPI. No: Joint Swelling, Muscle Pain, Muscle Weakness , Joint Stiffness All Other Systems: Reviewed and Negative *Physical Exam - Vital Signs Last Vital Signs Temp Pulse Resp BP Pulse Ox 98.8 F 68 18 127/66 99 05/13/18 11:06 05/13/18 11:06 05/13/18 11:06 05/13/18 11:06 05/13/18 11:06 - Physical Exam Comments: 05/13/18 11:32 GENERAL: Well developed, well nourished. Awake and alert. No acute distress. NECK: Supple. Full ROM. CARDIOVASCULAR: Regular rate and rhythm. No murmurs, rubs, or gallops. PULMONARY: No evidence of respiratory distress. Lungs clear to auscultation bilaterally. No wheezing, rales or rhonchi. ABDOMINAL: Soft. Non-tender. Non-distended. No rebound or guarding. No organomegaly. Normoactive bowel sounds. MUSCULOSKELETAL Normal range of motion at all joints. EXTREMITIES: No cyanosis. No clubbing. No edema. No calf tenderness. NEUROLOGICAL: Alert, awake, appropriate. . Gait is normal without ataxia. PSYCHIATRIC: Cooperative. Good eye contact. Appropriate mood and affect. General Appearance: Yes: Nourished, Appropriately Dressed. No: Apparent Distress Medical Decision Making - Medical Decision Making 05/13/18 11:28 Patient with no significant past medical history present for last dose of rabies vaccine status post cat bite to left thumb week ago. Patient received 3 previous doses and one dose of immunoglobulin. Report is not symptoms. Rabies vaccine given with no complication. *DC/Admit/Observation/Transfer Diagnosis at time of Disposition: Encounter for repeat administration of rabies vaccination - Discharge Dispostion Disposition: HOME Condition at time of disposition: Stable Decision to Admit order: No - Referrals Referrals: ON STAFF,NOT [Primary Care Provider] - - Patient Instructions - Post Discharge Activity
== END 2018-05-13 11:39 | disposition home or self-care (01) ==
LOC: JERFT 10:58
PROC: 3E0234Z Introduction of Serum, Toxoid and Vaccine into Muscle, Percutaneous Approach (ICD-10-PCS; principal; 2018-05-13)
DX: Z23 Encounter for immunization (principal); Z20.3 Contact with and (suspected) exposure to rabies
CPT/HCPCS: 90471; 90675; 99281-25